=== PATIENT | female | born 1980 | race African-American/Black ===

== ENCOUNTER 2021-11-25 14:10 | Inpatient (IN) | payer BC, OTHER ==
[2021-11-25 17:18] VITALS: BMI 28.6
[2021-11-25] MEDS: DEXTROSE 5%-LACTATED RINGERS 1,000 ML IV SCH (17:30)
[2021-11-25] MEDS ORDERED: OXYTOCIN 30 UNITS in 0.9% NS 30 UNIT/500 ML INFUS.BAG IVPB SCH (19:00)
[2021-11-25] MEDS ORDERED: OXYTOCIN 30 UNITS in 0.9% NS 30 UNIT/500 ML INFUS.BAG IVPB ONE (19:33)
[2021-11-25] MEDS ORDERED: FENTANYL/BUPIVACAINE/NS/PF - PCEA - 50 ML DISP.SYRIN EP ONE (19:45)
[2021-11-25 19:47] LABS: BASO % 0.3 % (0-2.0); EOS % 0.6 % (0-4.5); HEMATOCRIT 37.4 % (32.4-45.2); HEMOGLOBIN 12.7 GM/dL (10.7-15.3); MCH 33.3 pg (25.7-33.7); MCHC 33.9 g/dl (32.0-36.0); MEAN CELL VOLUME 98.2 fl (80-96); MEAN PLT VOLUME 9.3 fl (7.5-11.1); MONO % 6.4 % (3.8-10.2); NEUT % 75.7 % (42.8-82.8); PLATELET COUNT 135 10^3/uL (134-434); RDW 14.4 % (11.6-15.6); WHITE BLOOD COUNT 8.6 K/mm3 (4.0-10.0)
[2021-11-25 19:55] LABS: PROTHROMBIN TIME (PATIENT) 11.5 SEC (9.7-13.0)
[2021-11-25 19:58] LABS: ACTIVATED PTT 26.3 SECONDS (25.2-36.5)
[2021-11-25] MEDS: ELECTROLYTE-148 SOLN 1,000 ML IV SCH (20:00)
[2021-11-25 20:20] LABS: CALCIUM 8.9 mg/dL (8.5-10.1)
[2021-11-25 20:24] LABS: CREATININE 0.6 mg/dL (0.55-1.3)
[2021-11-25] MEDS ORDERED: NALOXONE HCL 0.4 MG/ML VIAL IVPUSH PRN (21:04)
[2021-11-25] MEDS ORDERED: FENTANYL/BUPIVACAINE/NS/PF - PCEA - 50 ML DISP.SYRIN EP SCH (21:15)
[2021-11-25 22:45] LABS: HIV INTERPRETATION NEGATIVE (NEGATIVE)
[2021-11-26] MEDS ORDERED: FENTANYL/BUPIVACAINE/NS/PF - PCEA - 50 ML DISP.SYRIN EP ONE ×5 (00:08→15:45)
[2021-11-26] MEDS: FENTANYL/BUPIVACAINE/NS/PF - PCEA - 50 ML DISP.SYRIN EP SCH ×3 (07:10→11:50)
[2021-11-26] MEDS ORDERED: ONDANSETRON 4 MG/2 ML VIAL IVPUSH ONE (07:32)
[2021-11-26] MEDS ORDERED: ONDANSETRON 4 MG/2 ML VIAL ONE (07:37)
[2021-11-26] MEDS: ELECTROLYTE-148 SOLN 1,000 ML IV SCH (09:00)
[2021-11-26] MEDS ORDERED: BUPIVACAINE HCL/PF 0.25% (2.5MG/ML) 10 ML VIAL ONE ×2 (12:25→16:29)
[2021-11-26] MEDS ORDERED: PROMETHAZINE HCL 25 MG/1 ML VIAL ONE (12:43)
[2021-11-26] MEDS ORDERED: PROMETHAZINE HCL 25 MG/1 ML VIAL IVPB ONE (12:45)
[2021-11-26] MEDS ORDERED: LIDOCAINE HCL 1% PRESERVATIVE FREE - 30ML VIAL ONE (17:23)
[2021-11-26] MEDS ORDERED: OXYTOCIN 20 UNITS in 0.9% NS 20 UNIT/1,000 ML INFUS.BAG IV ONE (17:24)
[2021-11-26] MEDS ORDERED: BENZOCAINE 28 GM HEMORRHOIDAL OINTMENT TP PRN (18:38)
[2021-11-26] MEDS ORDERED: ACETAMINOPHEN 325 MG TABLET (FP) PO PRN (18:38)
[2021-11-26] MEDS ORDERED: oxyCODONE HCL 5 MG TABLET PO PRN (18:38)
[2021-11-26] MEDS ORDERED: BISACODYL 10 MG SUPP.RECT RC PRN (18:38)
[2021-11-26] MEDS ORDERED: WITCH HAZEL 50% (TUCKS) 40 PAD/JAR PAD TP PRN (18:38)
[2021-11-26] MEDS ORDERED: METHYLERGONOVINE MALEATE 0.2 MG/1 ML AMP IM PRN (18:38)
[2021-11-26] MEDS ORDERED: BENZOCAINE 20% 57 GM BOTTLE TP PRN (18:38)
[2021-11-26] MEDS ORDERED: OXYTOCIN 20 UNITS in 0.9% NS 20 UNIT/1,000 ML INFUS.BAG IV SCH (18:45)
[2021-11-26] MEDS: DEXTROSE 5%-LACTATED RINGERS 1,000 ML IV SCH (19:05)
[2021-11-26] MEDS: IBUPROFEN 600 MG TABLET (FP) PO PRN (21:24)
[2021-11-27 07:04] LABS: BASO % 0.2 % (0-2.0); EOS % 0.3 % (0-4.5); HEMATOCRIT 29.8 % (32.4-45.2); HEMOGLOBIN 10.1 GM/dL (10.7-15.3); LYMPH % 10.8 % (8-40); MCH 33.6 pg (25.7-33.7); MCHC 33.8 g/dl (32.0-36.0); MEAN CELL VOLUME 99.5 fl (80-96); MEAN PLT VOLUME 9.6 fl (7.5-11.1); MONO % 4.6 % (3.8-10.2); NEUT % 84.1 % (42.8-82.8); PLATELET COUNT 126 10^3/uL (134-434); RDW 14.1 % (11.6-15.6); WHITE BLOOD COUNT 15.1 K/mm3 (4.0-10.0)
[2021-11-27] MEDS: FENTANYL/BUPIVACAINE/NS/PF - PCEA - 50 ML DISP.SYRIN EP SCH (07:20)
[2021-11-27] MEDS: PRENATAL VITAMINS W/ FOLIC ACID TABLET (FP) PO SCH (10:04)
[2021-11-27 21:27] VITALS: TEMP 98.4
[2021-11-27] MEDS ORDERED: SENNOSIDES/DOCUSATE COMBO (SENNA PLUS) TABLET (UD) PO PRN (22:00)
[2021-11-28] MEDS: IBUPROFEN 600 MG TABLET (FP) PO PRN (08:05)
[2021-11-28] MEDS: PRENATAL VITAMINS W/ FOLIC ACID TABLET (FP) PO SCH (10:09)
[2021-11-28 11:16] VITALS: BP 129/65; PULSE 84; RESP 18
== END 2021-11-28 12:40 | disposition home or self-care (01) | DRG 807 ==
LOC: JLDR 14:10 → UNDOADMIN 14:10 → JLDR 16:10 → J3W 11-26 21:20
PROVIDERS: ADMIT Obstetrics & Gynecology; ATTEND Obstetrics & Gynecology
PROC: 3E0P7VZ Introduction of Hormone into Female Reproductive, Via Natural or Artificial Opening (ICD-10-PCS; 2021-11-25)
PROC: 10E0XZZ Delivery of Products of Conception, External Approach (ICD-10-PCS; principal; 2021-11-26)
PROC: 0KQM0ZZ Repair Perineum Muscle, Open Approach (ICD-10-PCS; 2021-11-26)
PROC: 0W8NXZZ Division of Female Perineum, External Approach (ICD-10-PCS; 2021-11-26)
DX: O70.1 Second degree perineal laceration during delivery (principal); Z37.0 Single live birth; Z3A.39 39 weeks gestation of pregnancy
CPT/HCPCS: 36415; 59409; 80048; 85025; 85610; 85730; 86780; 86850; 86900; 86901; 87389; C9803-CS; U0003; U0005

== ENCOUNTER 2022-06-13 17:44 | Emergency (ER) | payer BC, OTHER ==
[2022-06-13 17:55] VITALS: BP 117/64; PULSE 95; RESP 19; TEMP 98.9; BMI 33.7
[2022-06-13] MEDS ORDERED: CIPROFLOXACIN 500 MG TABLET (RESTRICTED TO ID) PO ONE (18:07)
== END 2022-06-13 19:10 | disposition home or self-care (01) ==
LOC: JERFT 17:44
DX: Z20.811 Contact with and (suspected) exposure to meningococcus (principal)
CPT/HCPCS: 99283-25